=== PATIENT | male | born 1975 | race Caucasian/White ===

== ENCOUNTER 2021-07-25 00:15 | Emergency (ER) | payer SELFPAY ==
[~2021-07-25] VITALS: Ht 177.8 cm; Wt 79.2 kg
[2021-07-25 02:35] LABS: ALBUMIN 3.9 g/dL (3.5-5.0); BASO # 0.03 K/mm3 (0.02-0.10); EOS # 0.17 K/mm3 (0.04-0.40); EOS % 3.5 % (0.0-4.0); HEMATOCRIT 38.2 % (42.0-52.0); HEMOGLOBIN 12.8 g/dL (13.5-18.0); LYMPH# 1.03 K/mm3 (1.50-4.00); MEAN CELL VOLUME 89 fl (78-100); MEAN CORPUSCULAR HEMOGLOBIN 30 pg (27-31); MEAN CORPUSCULAR HGB CONC 34 g/dL (33-37); MONO # 0.42 K/mm3 (0.20-0.80); NEU # 3.23 K/mm3 (1.40-6.50); POTASSIUM 3.7 mmol/L (3.5-5.1); RED BLOOD COUNT 4.29 M/mm3 (4.20-5.60); RED CELL DISTRIBUTION WIDTH 12.9 % (11.5-14.5); WHITE BLOOD COUNT 4.9 K/mm3 (4.8-10.8)
[2021-07-25 02:36] LABS: CALCIUM 8.7 mg/dL (8.3-10.5)
[2021-07-25 02:39] LABS: TOTAL BILIRUBIN 0.2 mg/dL (0.2-1.2)
[2021-07-25 03:37] VITALS: BP 145/88
== END 2021-07-25 03:24 | disposition home or self-care (01) ==
LOC: ED 00:15
PROVIDERS: Family Medicine
DX: M79.645 Pain in left finger(s) (principal); Z28.310 Unvaccinated for COVID-19